=== PATIENT | female | born 1970 | race Caucasian/White ===

== ENCOUNTER 2024-12-27 03:06 | Day surgery (SDC) | payer OTHER, SELFPAY ==
[2024-12-19 08:38] VITALS: BMI 19.3
--- NOTE | 2024-12-19 08:45 | PC.NURSE ---
Report to the Outpatient Waiting Room, entrance under the green pavilion located off [facility], at time _0600_ on date _[id number]_. Planned Procedure Time: _0730_.? Time changes happen often and if your time is changed the preop area will call you the afternoon before. - You and your visitor will be asked to self-screen and do not enter if you have any COVID symptoms. Please call surgeon if you need to reschedule. - A mask is optional within the hospital at this time. Patients may have clear liquids (water, carbonated beverages, clear teas, apple juice) until 3 hours prior to surgery with a maximum of 20 ounces. - No food from midnight until time of surgery and no smoking, or chewing tobacco (or any form of nicotine). No chewing gum, candy or mints. Take only the following medications with a SIP of water on the morning of surgery: __Cymbalta, Levothyroxine, Buspirone and if needed Xanax. DO NOT STOP ANY OF YOUR OTHER PRESCRIPTION MEDICATIONS PRIOR TO SURGERY EXCEPT THE FOLLOWING Hold all vitamins and supplements for 3 days per anesthesiologist. Medications to discontinue per physician Date to take last gwaz____[id number]____ Please no make-up, nail hungarian, hairspray, perfume, deodorant, or body powder the day of surgery.? No jewelry (including any body piercings) or valuables the day of surgery, leave them at home.? Please take a shower or bath the night before, or the morning of, surgery with an antibacterial soap.? Wear comfortable, loose fitting clothing.? - Jewelry must be removed prior to entering the operating room.? Rings and piercings that are not removed may be cut off. - The hospital will not accept responsibility for valuables.? - Please leave all valuables, including medications, at home the day of surgery. If you are going home after surgery, a licensed tow truck driver must drive you home.? - NO public transportation without another adult if you receive anesthesia. - We recommend that an adult stay with you for 24 hours following discharge. - We also recommend that you do not drive, make important decision, drink alcoholic beverages, or take any drugs that were not prescribed by your health care provider for at least 24 hours after your discharge time. Follow any additional instructions given to you from your surgeon. Telephone instructions given to __Debi__and asked if any additional questions and then verbalized understanding. Patient advised to call surgeon office or pre surgery nurse liaison [phone] if any additional questions.
[2024-12-27] VITALS (8 sets, daily range): BP systolic 106–135; BP diastolic 62–85; PULSE 65–79; RESP 12–18; TEMP 36.2–36.4; O2SAT 97–100
--- OUTSIDE RECORDS SUMMARY | 2024-12-27 03:22 | XMS_ITS | Encounter Summary ---
Author Organization [facility] Health Address [address] [place] [address] Care Team Providers Care Cupola Charger Name Role Phone Marya Jimenez APRN-PHARMACY SPECIALIST Primary Care Provider [phone] Unknown, Provider Primary Care Provider Unavaila ble Angel Julio DO Primary Care Provider [phone] Angel Julio DO Unavailable [phone] Reason for Visit * Reason Onset Date Comments MEDICATION REFILL 03/28/2023 Encounter Details Date Type Department Care Team (Late st Contact Info) Description 03/28/2023 Refill [facility] - Family Medicine [address] [place] [address] [place] [id number] [facility] [address] [place] [id number] MEDICATION REFILL Social History Tobacco Use Types Packs/Day Years Used Date Smoking Tobacco: Former Cigarettes Q uit: 06/19/2014 Smokeless Tobacco: Never Alcohol Use Standard Drinks/Week Comments Not Currently 0 (1 standard drink = 0.6 oz pur e alcohol) PHQ-2 Answer Date Recorded PHQ2 TOTAL SCORE 0 08/17/2022 Comments Unknown Sex and Gender Information Value Date Recorded Sex Assigned at Not on file Legal Sex Female 8:11 AM CDT Gender Identity Not on file Sexual Orientation Not on file documented as of this encounter Plan of Treatment Not on file documented as of this encounter Visit Diagnoses Not on filedocumented in this encounter Care Teams Cupola Charger Relationship Specialty Start Date End Date Marya Jimenez, TONI-PHARMACY SPECIALIST PCP - General Nurse Practitioner 06/19/20 06/03/24 Unknown, Provider PCP - General 06/04/24 06/12/24 Angel Julio DO [address] [place] [address] PCP - General Family Medicine 06/13/24 [place] [address] [id number] PCP - Attributed-[facility] 09/05/24 documented as of this encounter
--- OUTSIDE RECORDS SUMMARY | 2024-12-27 03:22 | XMS_ITS | Clinical Summary ---
Author Organization [facility] Address [address] [place] [address] Care Team Providers Care Tag Meter Operator Name Role Phone Angel Julio DO Primary Care Provider [phone] Angel Julio DO Unavailable [phone] Source Comments [facility],non-owned Affiliates and Associated Physician Practices is amultiple site organization consisting of ambulatory clinics and hospital sitesin [place], [place], [place]. This disclosure is being madepursuant to the Care Everywhere program and may not contain all information available regarding this patient. Last updated 18.[facility] Allergies No known active allergies Medications * This document contains information received from the source organization and may not represent a complete record from that organization. * Be aware that medications may not be up to date on this document. Alwaysverify current medications with the patient. levothyroxine (Synthroid) 50 MCG tabletIndication s:Hypothyroidism , unspecified type TAKE ONE TABLET BY MOUTH EVERY DAY 90 tablet 1 4 Active busPIRone (Buspar) 15 MG tablet Take 1 (one) tablet by mouth 2 times daily 60 tablet 1 5 Active DULoxetine (Cymbalta) 60 MG capsuleIndicatio ns:Anxiety Take 1 (one) capsule by mouth once daily 30 capsule 1 5 Active ALPRAZolam (Xanax) 0.5 MG tabletIndication s:Anxiety Take 1 (one) tablet by mouth 3 times daily as needed for Anxiety 90 tablet 1 5 Active zolpidem (Ambien) 10 MG tablet Take 1 (one) tablet by mouth nightly as needed for Insomnia 30 tablet 2 5 Active Active Problems Problem Noted Date Diagnosed Date Mixed hyperlipidemia 08/17/2022 Anxiety with depression 12/08/2020 Hypothyroidism 12/08/2020 Encounters * This document contains information received from the source organization and may not represent a complete record from that organization. Date Type Department Care Team Description 11/14/2024 Orders Only [facility] [address] [place] [address] Zena Jaimes RN 11/12/2024 Travel 10/22/2024 Travel from Last 3 Months Immunizations Immunization Administration Dates Next Due DTP 10/01/1975, 2,1970,1970,1970 HEP B VACCINE, ADULT 3 DOSE 06/19/1992, 2,01/03/1992 INFLUENZA VACCINE 08/04/2015,08/01/2015 INFLUENZA VACCINE, QUADR. (F LUZONE; FLULAVAL; FLUARIX; AFLURIA QUADRIVALENT; 6MO+), 0.5 ML (IIV4) 07/19/2018,08/05/2015 MEASLES 1970 MMR 05/03/1996 MUMPS 10/05/1971 POLIO OPV 10/01/1975, 2,1970,1970,1970 TD VACCINE 05/03/1996,09/25/1985 TDAP (7yrs+) 09/05/2005 Family History Medical History Relation Name Comments Other Maternal Grandfather Depression Mother Hypertension Mother Relation Name Status Comments Maternal Grandfather Mother Social History Tobacco Use Types Packs/Day Years Used Date Smoking Tobacco: Former Cigarettes Q uit: 06/19/2014 Smokeless Tobacco: Never Tobacco Cessation:Counseling Given: Not Answered Alcohol Use Standard Drinks/Week Comments Not Currently 0 (1 standard drink = 0.6 oz pur e alcohol) PHQ-2 Answer Date Recorded Patient Health Questionnaire-2 Score 0 11/12/2024 Comments Unknown Sex and Gender Information Value Date Recorded Sex Assigned at Not on file Legal Sex Female 8:11 AM CDT Gender Identity Not on file Sexual Orientation Not on file Last Filed Vital Signs Vital Sign Reading Time Taken Comments Blood Pressure 133/75 11/12/2024 9:23 AM CDT Pulse 79 11/12/2024 9:23 AM CDT Temperature 37.3 C (99.1 F) 11/07/2023 11:37 AM INFORMATION SUPPORT PROJECT MANAGER Respiratory Rate 16 11/12/2024 9:23 AM CDT Oxygen Saturation 97% 11/12/2024 9:23 AM CDT Inhaled Oxygen Concentration - - Weight 59.7 kg (131 lb 9.6 oz) 11/12/2024 9:23 A M CDT Height 172.7 cm (5' 8 ) 04/18/2023 9:36 AM CDT Body Mass Index 20.01 04/18/2023 9:36 AM CDT Plan of Treatment Health Maintenance Due Date Last Done Comments COLOGUARD (AGES 45-75) - COLON CA SCREENING 1970 COLON MONITORING 1970 COLONOSCOPY - COLON CA SCREENING 1970 CT COLONOGRAPHY - COLON CA SCREENING 1970 Colorectal Cancer Screening 1970 FIT - COLON CA SCREENING 1970 FLEX SIG - COLON CA SCREENING 1970 PAP SMEAR 1970 HIV SCREENING 1985 HEPATITIS C SCREENING 04/30/1988 DTAP/TDAP/TD VACCINES (9 - Td or Tdap) 09/05/2015 09/05/2005, 05/03/1996, 09/25/1985, Additional history exists PNEUMOCOCCAL VACCINE 50+ (1 of 1 - PCV) 2020 ZOSTER VACCINE (1 of 2) 2020 COVID-19 VACCINE (1 - season) 2024 INFLUENZA VACCINE (Season Ended) 2025 07/19/2018, 08/05/2015, 08/04/2015, Additional history exists MAMMOGRAM 06/13/2026 06/13/2024 LIPID TESTING 04/27/2029 04/27/2024, 0904/2023, 08/14/2022, Additional history exists HEPATITIS B VACCINE Completed 06/19/1992, 02/05/1992, 01/03/1992 DEPRESSION SCREENING Completed 09/21/2024, 11/07/2023, 04/18/2023, Additional history exists HIB VACCINE Aged Out No longer eligi ble based on patient's age to complete this topic HPV VACCINE Aged Out No longer eligi ble based on patient's age to complete this topic MENINGOCOCCAL (Group B) VACCINE SHARED DECISION-MAKING Aged Out No longer eligible based on patient's age to complete this topic MENINGOCOCCAL GROUPS A/C/Y/W VACCINE Aged Out No longer eligible based on patient's age to complete this topic Procedures Procedure Name Priority Date/Time Associated Diagnosis Comments MAMMO BILAT SCREENING Routine 06/13/2024 1:53 PM CDT Encounter for screening mammogram for breast cancer LIPID PROFILE Routine 04/27/2024 10:08 AM CDT Routine general medical examination at a health care facility from Last 3 Months or Most Recently Relevant to Health Maintenance Results * MAMMO BILAT SCREENING (06/13/2024 1:53 PM CDT) Anatomical Region Laterality Modality Breast Bilateral Mammography 06/13/2024 1:57 PM CDT Impressions 06/13/2024 4:01 PM CDT IMPRESSION: BI-RAD 0 ADDITIONAL IMAGING EVALUATION NEEDED The asymmetry in the left breast is indeterminate. An immediate follow-up is recommended. A letter will be sent to the patient with these results. Electronically signed by: Jody corcoran/zeeshan:06/13/2024 16:01:11 Skiving Machine Operator(s): RT Delisa(R)(M), [facility] letter sent: Additional Imaging Reading location: [facility] BI-RADS: 0 Additional Imaging Evaluation Needed Narrative 06/13/2024 4:01 PM CDT - MAMMO BILAT SCREENING BILATERAL DIGITAL SCREENING MAMMOGRAM 3D/2D WITH CAD WITH MEDIOLATERAL OBLIQUE CRANIOCAUDAL: 06/13/2024 The study was acquired using full field digital technology and interpreted from soft copy. Current study was also evaluated with ICAD version 7.2. 2D digital mammographic views, as well as 3D digital tomosynthesis were performed in the CC and MLO projections. CLINICAL: Baseline. Routine Screening. No complaints. No personal history of cancer. No family history of breast cancer. COMPARISONS: No prior exams were available for comparison. BREAST TISSUE:There are scattered fibroglandular densities in both breasts. FINDINGS: There is an asymmetry in the left breast anterior depth superior region seen on the mediolateral oblique view only. No other significant masses, calcifications, or other findings are seen in either breast. Procedure Note Jody Lara MD - 10/12/2024 - MAMMO BILAT SCREENING BILATERAL DIGITAL SCREENING MAMMOGRAM 3D/2D WITH CAD WITH MEDIOLATERALOBLIQUE CRANIOCAUDAL: 06/13/2024 The study was acquired using full field digital technology and interpretedfrom soft copy. Current study was also evaluated with ICAD version 7.2. 2D digital mammographic views, as well as 3D digital tomosynthesis were performed in the CC and MLO projections. CLINICAL: Baseline. Routine Screening. No complaints. No personal historyof cancer. No family history of breast cancer. COMPARISONS: No prior exams were available for comparison. BREAST TISSUE:There are scattered fibroglandular densities in bothbreasts. FINDINGS: There is an asymmetry in the left breast anterior depth superior regionseen on the mediolateral oblique view only. No other significant masses, calcifications, or other findings are seen in either breast. IMPRESSION IMPRESSION: BI-RAD 0 ADDITIONAL IMAGING EVALUATION NEEDED The asymmetry in the left breast is indeterminate. An immediate follow-up is recommended. A letter will be sent to the patient with these results. Electronically signed by: Jody corcoran/zeeshan:06/13/2024 16:01:11 Skiving Machine Operator(s): RT Delisa(R)(M), [facility] letter sent: Additional Imaging Reading location: [facility] BI-RADS: 0 Additional Imaging Evaluation Needed us Angel Julio DO MAMMO ORDERABLES Edited Resul t - Final * (ABNORMAL) LIPID PROFILE (04/27/2024 10:08 AM CDT) Cholesterol 210(H) <200 mg/dL 04/27/2024 1:38 PM CDT [facility] Triglycerides 59 <150 mg/dL 04/27/2024 1:38 PM CDT [facility] HDL Cholesterol 73 >40 mg/dL 1:38 PM CDT [facility] Chol HDL Ratio 2.9 1.0 - 6.0 04/27/2024 1:38 PM CDT [facility] LDL Calculated 125 65 - 130 mg/dL 04/27/2024 1:38 PM CDT [facility] VLDL Calculated 12 <=30 mg/dL 1:38 PM T [facility] Blood BLOOD SPECIMEN / Unknown Venipuncture / Unknown 04/27/2024 10:08 AM CDT 04/27/2024 10:08 AM CDT Narrative [facility] - 04/27/2024 1:38 PM CDT Lipid Profile Comment: CHOLESTEROL LEVEL..................CLINICAL INTERPRETATION LESS THAN 200 MG/DL..............................DESIRABLE 200-239 MG/DL..............................BORDERLINE HIGH GREATER THAN 240 MG/DL................................HIGH LDL-CHOLESTEROL LEVEL..............CLINICAL INTERPRETATION LESS THAN 100 MG/DL................................OPTIMAL 100-129 MG/DL.................................NEAR OPTIMAL GREATER THAN 160 MG/DL...........................HIGH RISK HDL RISK LEVEL GREATER THEN 60 MG/DL............................DECREASED 40-60 MG/DL........................................AVERAGE LESS THAN 40 MG/DL...............................INCREASED TRIGLYCERIDE LEVEL..................CLINICAL INTERPRETATION LESS THAN 150 MG/DL...............................DESIRABLE 150-199 MG/DL...............................BORDERLINE HIGH 200-499 MG/DL..........................................HIGH GREATER THAN 500..................................VERY HIGH THE NATIONAL CHOLESTEROL EDUCATION PROGRAM HAS SET THE ABOVE GUIDELINES (REFERANCE VALUES) FOR CHOLESTEROL AND HDL. RISK ASSOCIATED WITH CHOLESTEROL/HDL RATIOS RISK....................MALE RATIO.............FEMALE RATIO 1/2 AVERAGE.................<3.4.......................<3.3 LOW RISK.................... 4.0 ...................... 3.8 AVERAGE..................... 5.0 ...................... 4.5 2X AVERAGE.................. 9.5 ...................... 7.0 3X AVERAGE...................>23........................>11 Heidi Stevenson Irvin PAPERBACK MACHINE OPERATOR-PHARMACOGNOSIST LAB - CHEMISTRY OR DERABLES Final Result [facility] [address] [place] [address], [facility] from Last 3 Months or Most Recently Relevant to Health Maintenance Insurance [facility] Care Teams Tag Meter Operator Relationship Specialty Start Date End Date Angel Julio DO [address] [place] [address] PCP - General Family Medicine 06/13/24 [place] [address] [phone] PCP - Attributed[facility] 09/05/24
[2024-12-27] MEDS: LACTATED RINGERS 1,000 ML 30 ML IV CONT ×2 (06:30→08:31)
[2024-12-27] MEDS: TRANEXAMIC ACID 1,000MG/ISO100 1,000 MG/100 ML BAG 200 MG IVPB (06:35)
--- NOTE | 2024-12-27 06:39 | P.PNAN_ITS ---
Anes - Initial Pre Proc Eval Procedure: Operation Date: 12/27/24 07:30 Proposed Procedures p Bilateral Augmentation Mammoplasty - Nacho Jiang MD Date/Time: 12/27/24 06:39 Surgeon: Nacho Jiang MD Pre Op Diagnosis: micromastia Patient Data Age: 54 Gender: F Height: 1.75 m Weight: 59.5 kg Allergies Allergy/AdvReac Type Severity Reaction Status Date / Time No Known Allergies Allergy Verified 12/19/24 08:35 Home Medications ?Medication ?Instructions ?Recorded ?Confirmed ?Type alprazolam 0.5 mg tablet 0.5 mg PO TID PRN anxiety 12/19/24 12/19/24 History buspirone 15 mg tablet 15 mg PO BID 12/19/24 12/27/24 History duloxetine 60 mg capsule,delayed 60 mg PO DAILY 12/19/24 12/27/24 History release levothyroxine 50 mcg tablet 50 mcg PO DAILY 12/19/24 12/27/24 History multivitamin (Daily Multi-Vitamin 1 tablet PO DAILY 12/19/24 12/27/24 History tablet) Patient hx anesthesia problems: none Family hx anesthesia problems: none Results Review: All pre-operative results and documents have been reviewed as part of the pre- operative evaluation. PMFSH Past Medical History Medical History (Updated 12/27/24 @ 06:39 by Bernard Duarte MD) Hypothyroidism Anxiety Social History Social History Tobacco type: e-cigarettes/vaping Alcohol intake: current Living arrangements: with family Spiritual care concerns: No Anes - Eval Final PreProcedure Day of Procedure 12/27/24 06:39 Patient weight: thin Heart: regular rate and rhythm Lungs: clear to auscultation Airway: Mallampati scale class II Neurological: alert and oriented Last oral intake: >/= 8 hours ASA classification: II Emergent: no Anesthetic plan: proceed Anesthesia type and monitoring: general LMA and standard monitoring Results Review: All pre-operative results and documents have been reviewed as part of the pre- operative evaluation. Informed Consent: The patient's anesthetic plan and its attendant risks and benefits were discussed with the patient/family/POA. Questions were solicited and answers provided to the satisfaction of the patient/family/POA.
[2024-12-27] MEDS: SCOPOLAMINE 1 MG PATCH 1 PATCH TRANSDERM (06:45)
--- NOTE | 2024-12-27 07:12 | WPDHPUPDATE1 ---
History and Physical Update Update Date/Time: 12/27/24 07:12 History and Physical has been reviewed, including an updated exam of the patient. There are NO changes in the patient's condition. Risks, benefits, and alternatives have been discussed and questions answered. Patient agrees to proceed with procedure.
--- NOTE | 2024-12-27 07:13 | P.OP_ITS ---
Procedure Note - Detailed Date of Procedure 12/27/24 Pre-op Diagnosis micromastia Post-op Diagnosis Same Procedure Performed Bilateral augmentation mammaplasty Surgeon Nacho Jiang MD Anesthesia General Findings Bilateral Arnulfo Hathaway SoftTouch 525 Right: REF# [id number] SN [id number] Dual plane 2 Left: REF# [id number] SN [id number] Dual plane 2 Description of Procedure She is here today for bilateral breast augmentation. Previously and again today the risks, benefits, alternatives were discussed in extensive detail. I wanted her to be very realistic about the risks involved as well as expectations. We discussed aftercare and what to monitor for. Made sure answered all of her questions to her satisfaction today and consent was obtained. Marked in the preoperative holding area with their verification. The patient was taken to the operating room placed supine on the operating table. Anesthesia was provided by anesthesiology. A surgical time-out was taken. We cleansed the skin and 1% lidocaine and 0.25% Marcaine with epinephrine was used anesthetize as a field block. She was prepped and draped in a standard sterile fashion. Tegaderm nipple Clarke were placed. A 15 blade used to make an incision along the inframammary fold. Dissection was continued at 45 degree angle until the chest wall as identified. I incised the pectoralis major along its inferior border and completely released the inferior border leaving the medial border intact. I created a subpectoral pocket in the appropriate dimensions based on our preoperative planning for the implant. I then copiously irrigated with saline solution and verified a strict hemostasis . Next the use a triple antibiotic and Betadine containing solution to irrigate the pocket. I washed my gloves with the triple antibiotic and Betadine solution. We washed the implant immediately upon opening it with this solution and only opened it when we needed it. I used implant funnel and no-touch technique. The implant was introduced into the pocket using the funnel. Having verified positioning of the implant this was closed using 2-0 PDS followed by 3-0 Monocryl in a running subcuticular 4-0 Monocryl followed by tissue glue. Fluffs and surgical bra were placed. Patient was awoke and taken to PACU without difficulty. All instrument sponge counts were correct at the end of the case. Estimated Blood Loss 20 Drains No Packing No Pathology None sent Complications No immediate complications Condition Stable Disposition PACU
[2024-12-27] MEDS: ceFAZolin 2 GM/D5W 50 ML 2 GM/50 ML BAG IVPB (07:21)
[2024-12-27] MEDS: NACL 0.9% IRRIG POUR BOTTLE 900 ML, GENTAMICIN SULFATE INJ 160 MG, ceFAZolin 2 GM, POVI... IRRIGATION (07:37)
[2024-12-27] MEDS: LIDO 1%/EPINEPHRINE 1:100,000 50 ML VIAL 30 ML INFILTRATE (07:40)
[2024-12-27] MEDS: BUPivacaine HCL 0.25% PF 30 ML VIAL INFILTRATE (07:41)
[2024-12-27] MEDS: fentaNYL CITRATE INJ (*CRX) 100 MCG/2 ML VIAL 25 MCG IV PUSH ×4 (08:56→09:20)
[2024-12-27] MEDS: oxyCODONE HCL (*CRX) 5 MG TAB IR PO (09:47)
== END 2024-12-27 10:15 | disposition home or self-care (01) ==
PROVIDERS: Visit Provider Surgery Plastic and Reconstructive Surgery
PROC: (CPT 19325; principal; 2024-12-27 07:30)
DX: Z41.1 Encounter for cosmetic surgery (principal); N64.82 Hypoplasia of breast; N64.81 Ptosis of breast; E03.9 Hypothyroidism, unspecified; F41.9 Anxiety disorder, unspecified; Z98.890 Other specified postprocedural states; Z87.891 Personal history of nicotine dependence
CPT/HCPCS: 19325; A9270; J0690; J1100; J1580; J2003; J2004; J2250; J2371; J2405; J2704; J3010; J7030; J7120